=== PATIENT | female | born 2000 | race Native Hawaiian/Other Pacific Islander ===

== ENCOUNTER 2019-04-05 18:05 | Emergency (ER) | payer MEDICAID ==
[~2019-04-05] VITALS: Ht 170.2 cm; Wt 98.4 kg
[2019-04-05 18:13] VITALS: Ht 170.2 cm; Wt 98.4 kg
[2019-04-05 18:56] VITALS: BP 124/67
== END 2019-04-05 18:56 | disposition home or self-care (01) ==
LOC: ED 18:05
DX: S61.212D Laceration without foreign body of right middle finger without damage to nail, subsequent encounter (principal); X58.XXXD Exposure to other specified factors, subsequent encounter